=== PATIENT | male | born 1960 | race Asian ===

== ENCOUNTER 2018-04-23 09:32 | Day surgery (SDC) | payer BC ==
[2018-04-23] MEDS ORDERED: FENTAnyl 50 MCG/ML VIAL (12:00)
[2018-04-23] MEDS ORDERED: MIDAZOLAM 1 MG/ML 2 ML INJ ×3 (12:00)
== END 2018-04-23 15:09 | disposition home or self-care (01) ==
LOC: GIL 09:32
DX: Z12.11 Encounter for screening for malignant neoplasm of colon (principal); K64.8 Other hemorrhoids; D12.6 Benign neoplasm of colon, unspecified; I10 Essential (primary) hypertension
CPT/HCPCS: 45385; 82962; 88305